=== PATIENT | male | born 1940 | race Caucasian/White ===

== ENCOUNTER 2018-10-02 06:19 | Day surgery (SDC) | payer MEDICARE, BC ==
[~2018-10-02 06:19] MED LIST: Midazolam 1 MG/ML 2 ML SDV ONE; Propofol 200 MG/20 ML SDV ONE; fentaNYL 100 MCG/2 ML SDV ONE
[2018-10-02] MEDS ORDERED: Sodium Chloride 0.9% 1,000 ML IV SCH (07:00)
[2018-10-02] MEDS ORDERED: fentaNYL 100 MCG/2 ML SDV ONE (07:16)
[2018-10-02] MEDS ORDERED: Propofol 200 MG/20 ML SDV ONE (07:16)
--- NOTE | 2018-10-03 08:18 | OR ---
DATE OF PROCEDURE: 10/02/2018 SURGEON: Toby Toussaint MD PROCEDURE: Colonoscopy. FINDINGS: 1. Diverticulosis. 2. No evidence of old or new blood. COMPLICATIONS: None. LOG SCALER: None. ANESTHESIA: MAC. PREOPERATIVE DIAGNOSIS: Gastrointestinal bleeding. POSTOPERATIVE DIAGNOSIS: Gastrointestinal bleeding. RISKS: Risks, benefits, alternatives, and limitations including, but not limited to infection, bleeding, and perforation were explained to the patient, who wished to proceed. PROCEDURE IN DETAIL: The patient was placed in left lateral decubitus position. Digital rectal exam was performed without abnormality. The scope was introduced and advanced atraumatically to the ileocecal valve. The scope was brought back through the ascending, transverse, descending colon, and retroflexed. No evidence of old or new blood. The most likely etiology of the bleeding was the diverticulosis, however, none could be discerned today. No abnormalities on retroflex. No polyps. No colitis. The patient tolerated the procedure well. Toby Toussaint MD /[id number]
== END 2018-10-02 09:18 | disposition home or self-care (01) ==
LOC: JP.SDS 06:19
PROVIDERS: ATTEND Surgery
DX: K57.31 Diverticulosis of large intestine without perforation or abscess with bleeding (principal); Z88.1 Allergy status to other antibiotic agents
CPT/HCPCS: 45378; J2704; J3010; J7030; J2250

== ENCOUNTER 2022-09-13 17:12 | Emergency (ER) | payer MEDICARE, BC ==
[2022-09-13 18:31] LABS: CORONAVIRUS COVID-19 NAA NEGATIVE (NEGATIVE)
[2022-09-13] MEDS ORDERED: Sodium Chloride 0.9% 10 ML Syringe FLUSH PRN (18:35)
[2022-09-13] MEDS ORDERED: Lactated Ringers 1,000 ML IV SCH (18:45)
[2022-09-13 19:12] LABS: ESTIMATED GFR 86 mL/min (>60)
[2022-09-13] MEDS ORDERED: Levofloxacin 500 MG Tab PO ONE (20:12)
== END 2022-09-13 20:50 | disposition home or self-care (01) ==
LOC: JP.ED 17:12
DX: N41.0 Acute prostatitis (principal); Z88.1 Allergy status to other antibiotic agents; Z20.822 Contact with and (suspected) exposure to COVID-19
CPT/HCPCS: 0241U; 36415; 80053; 81001; 83605; 84145; 85025; 86140; 87040; 96360; 99284; A9270; J3490; J7120

== ENCOUNTER 2022-10-02 21:38 | Emergency (ER) | payer MEDICARE, BC ==
[2022-10-02] MEDS ORDERED: Sodium Chloride 0.9% 10 ML Syringe FLUSH PRN (21:51)
[2022-10-02 22:07] LABS: BASOPHILS ABSOLUTE AUTO 0.03 K/uL (0.00-0.10); BASOPHILS PERCENT AUTO 0.6 % (0.1-1.3); EOSINOPHILS ABSOLUTE AUTO 0.15 K/uL (0.00-0.40); EOSINOPHILS PERCENT AUTO 2.8 % (0.0-5.4); HEMOGLOBIN 15.1 g/dL (12.9-16.9); IMMATURE GRAN PERCENT AUTO 0.4 % (0.0-0.7); LYMPHOCYTES ABSOLUTE AUTO 1.29 K/uL (0.8-3.3); LYMPHOCYTES PERCENT AUTO 24.4 % (11.4-47.7); MEAN CORPUSCULAR HEMOGLOBIN 31.3 pg (31.6-35.5); MEAN CORPUSCULAR HGB CONC 33.6 g/dL (31.6-35.5); MEAN CORPUSCULAR VOLUME 93.4 fL (81.4-99.0); MONOCYTES ABSOLUTE AUTO 0.74 K/uL (0.20-0.90); NEUTROPHILS ABSOLUTE AUTO 3.06 K/uL (1.0-7.6); NEUTROPHILS PERCENT AUTO 57.8 % (40.0-78.1); PLATELET COUNT,PLT 165 K/uL (130-375); RED BLOOD CELL COUNT 4.82 M/uL (4.14-5.76); WHITE BLOOD CELL COUNT,WBC 5.3 K/uL (3.2-11.0)
[2022-10-02 22:08] LABS: IMMATURE GRAN ABSOLUTE AUTO 0.02 K/uL (0.00-0.23)
[2022-10-02 22:27] LABS: INR 1.4; PROTHROMBIN TIME 13.5 sec (9.2-10.6); PTT,PARTIAL THROMBOPLSTIN TIME 29.8 sec (21.8-27.3)
[2022-10-02] MEDS ORDERED: Atropine 0.1 MG/ML 10 ML Syringe IVPUSH ONE (22:30)
[2022-10-02] MEDS ORDERED: Sodium Chloride 0.9% 500 ML IV ONE (22:30)
[2022-10-02 22:31] LABS: CALCIUM 8.6 mg/dL (8.5-10.1); CREATININE 0.9 mg/dL (0.8-1.3); EST CRCL DRUG DOSING (CG) 71.85 mL/min; POTASSIUM,K 3.8 mmol/L (3.6-5.2)
[2022-10-02 22:33] LABS: ANION GAP 9.8 mmol/L (5.0-14.0)
== END 2022-10-02 23:30 ==
LOC: JP.ED 21:38
DX: R20.2 Paresthesia of skin (principal); R20.0 Anesthesia of skin; I48.0 Paroxysmal atrial fibrillation; I49.5 Sick sinus syndrome; Z88.1 Allergy status to other antibiotic agents; Z79.01 Long term (current) use of anticoagulants; Z20.822 Contact with and (suspected) exposure to COVID-19
CPT/HCPCS: 36415; 70450; 80048; 82947; 83735; 84484; 85025; 85610; 85730; 93005; 99285; J3490; J7040; U0002

== ENCOUNTER 2024-04-09 06:23 | Day surgery (SDC) | payer MEDICARE, BC ==
[2024-04-09] MEDS: Lactated Ringers 1,000 ML IV SCH (07:11)
[2024-04-09] MEDS ORDERED: Dexamethasone 4 MG/ML SDV ONE (07:19)
[2024-04-09] MEDS ORDERED: Glycopyrrolate 0.2 MG/ML 5 ML MDV ONE (07:19)
[2024-04-09] MEDS ORDERED: fentaNYL 250 MCG/5 ML SDV ONE (07:19)
[2024-04-09] MEDS ORDERED: Succinylcholine 200 MG/10 ML MDV ONE (07:19)
[2024-04-09] MEDS ORDERED: Ondansetron 4 MG/2 ML SDV ONE (07:19)
[2024-04-09] MEDS ORDERED: Propofol 200 MG/20 ML SDV ONE (07:19)
[2024-04-09] MEDS ORDERED: Neostigmine Methylsulfate 10 MG/10 ML MDV ONE (07:19)
[2024-04-09] MEDS ORDERED: Rocuronium 50 MG/5 ML Vial ONE (07:19)
[2024-04-09] MEDS: metroNIDAZOLE/Normal Saline 500 MG in Premix Bag 1 BAG IV ONE (07:26)
[2024-04-09] MEDS ORDERED: ceFAZolin 2 GM in Sodium Chloride 0.9% 50 ML IV ONE (08:00)
[2024-04-09] MEDS: ceFAZolin 2 GM in Premix Bag 1 BAG IV ONE (08:05)
[2024-04-09] MEDS ORDERED: ePHEDrine 50 MG/ML SDV ONE (08:12)
[2024-04-09] MEDS ORDERED: Sodium Chloride 0.9% 10 ML ONE (08:12)
[2024-04-09] MEDS: Ropivacaine 40 ML, dexAMETHasone 8 MG, EPINEPHrine 0.4 MG, Sodium Chloride 0.9% 37.6 ML NERVRT SCH (08:27)
[2024-04-09] MEDS: Bupivacaine 0.5%/EPINEPHrine 1:200,000 50 ML MDV ONE (08:42)
[2024-04-09] MEDS: Acetaminophen/HYDROcodone 325-5 MG Tab PO PRN (10:48)
== END 2024-04-09 12:30 | disposition home or self-care (01) ==
LOC: JP.SDS 06:23
PROVIDERS: ATTEND Surgery
DX: K40.30 Unilateral inguinal hernia, with obstruction, without gangrene, not specified as recurrent (principal); I48.0 Paroxysmal atrial fibrillation
CPT/HCPCS: 49650; A9270; C1781; J0171; J0330; J0690; J1100; J1596; J1836; J2405; J2704; J2710; J2795; J3010; J3490; J7120

== ENCOUNTER 2025-04-10 07:55 | Day surgery (SDC) | payer MEDICARE, BC ==
[2025-04-10] MEDS: Sodium Chloride 0.9% 10 ML Syringe FLUSH PRN (08:40)
== END 2025-04-10 09:41 | disposition home or self-care (01) ==
LOC: JP.SDS 07:55
PROVIDERS: ATTEND Ophthalmology
DX: H25.11 Age-related nuclear cataract, right eye (principal); I48.91 Unspecified atrial fibrillation; Z88.8 Allergy status to other drugs, medicaments and biological substances; Z79.01 Long term (current) use of anticoagulants; Z79.899 Other long term (current) drug therapy
CPT/HCPCS: V2632